=== PATIENT | female | born 1955 | race Two or more races ===

== ENCOUNTER 2018-10-08 12:51 | Emergency (ER) | payer MEDICAID, OTHER ==
[~2018-10-08] VITALS: Ht 154.9 cm; Wt 67.6 kg
--- NOTE | 2018-10-08 13:49 | NUR ---
Patient discharged to home in stable conditon. Written and verbal after care instructions given. Patient verbalizes understanding of instructions.PT WALKS IN STEADY GAIT, BREATHING NORMALY, NO SIGN OF DISTRESS. PRT ACCOMPANIED BY FAMILY MEMBERS. SON PROVIDED THE TRANSLATION FROM [place]
== END 2018-10-08 13:53 | disposition home or self-care (01) ==
LOC: ER 12:51
DX: J30.9 Allergic rhinitis, unspecified (principal)
CPT/HCPCS: A4663